=== PATIENT | male | born 1930 | race Caucasian/White ===

== ENCOUNTER 2016-10-25 13:22 | Inpatient (IN) | payer MEDICARE, BC ==
[~2016-10-25] VITALS: Ht 175.3 cm; Wt 85.2 kg
[2016-10-25] VITALS (9 sets, daily range): BP systolic 113–162; BP diastolic 58–81; PULSE 48–64; RESP 15–19; TEMP 97.3–98.2; O2SAT 96–99
[~2016-10-25 13:22] MED LIST: AGGR20025 PO; AMIO0.1T PO; ATOR10TA15 PO; COMMODE 3-IN-11 MIS; HYDR-3516 PO; METO25TA3 PO; THERTAB15 PO; UMEC1AER INH; VENTAER INH; VITA100021 SL; WHEEMIS3
--- NOTE | 2016-10-25 13:47 | PD ---
HPI Chief Complaint: Complaint Time Seen by Provider: 13:47 Travel History International Travel<30 days: No Contact w/Intl Traveler<30days: No Traveled to known affect area: No History of Present Illness HPI 86-year-old male presents to the emergency department for evaluation of bleeding from his penis after he pulled out his Saenz catheter this morning. He states that he had a procedure done in Dr. Jona Winchester's office 2 weeks ago, sounds like a TURP procedure. He states that he was instructed to pull out his Saenz catheter tomorrow morning, but pulled it out today thinking today was Wednesday. He states he did this at 4:30 AM. Patient states that he cut the second port and pulled it out without difficulty. He states that since then, he has been bleeding and having blood clots. He states he has been unable to urinate since he pulled out the Saenz. The patient also states that he is dizzy since he pulled out his Saenz.He can be. He does report a history of cardiac bypass, A. fib, COPD, hyperlipidemia, hypertension. He is currently on Bactrim. He states he tried to call his urologist, but was unable to reach them. Patient's montessori program director is Dr. Rivera. He states that he is going to get a defibrillator by Dr. Rivera. [facility] Past Medical History Hx Anticoagulant Therapy: Yes Arthritis: Yes Asthma: No Autoimmune Disease: No Anxiety: No Depression: No Heart Rhythm Problems: No Cancer: Yes (colon) Cardiac Catheterization: Yes Cardiovascular Problems: Yes High Cholesterol: Yes Chemotherapy: Yes Chest Pain: No Congestive Heart Failure: Yes COPD: Yes Cerebrovascular Accident: Yes Diabetes: No (pt states has never been diagnosed as DM) Diminished Hearing: No Endocrine: No Gastrointestinal Disorders: No GERD: No Genitourinary: Yes (pt has indwelling saenz cathetar) Headaches: Yes Hiatal Hernia: Yes Hypertension: Yes Immune Disorder: No Kidney Stones: No Musculoskeletal: Yes (OA) Neurologic: No Psychiatric: No Reproductive: No Respiratory: Yes Immunizations Current: Yes Migraines: No Renal Failure: No Seizures: No Sickle Cell Disease: No Sleep Apnea: No Thyroid Disease: No Ulcer: No Tetanus Vaccination: Unknown Influenza Vaccination: Yes Past Surgical History Abdominal Surgery: Yes (HERNIA REPAIR, 3 FT OF COLON REMOVED) AICD: No Arteriovenous Shunt: No Cardiac Surgery: Yes (cardiac cath and cabg) Coronary Artery Bypass Graft: Yes Ear Surgery: No Endocrine Surgery: No Eye Surgery: No Genitourinary Surgery: Yes (TURP) Gynecologic Surgery: Yes (COLON ca AND HERNIA 94') Insulin Pump: No Joint Replacement: No Oral Surgery: No Pacemaker: No Thoracic Surgery: Yes (CABGx3) Other Surgery: Yes (3 FT OF COLON REMOVED - COLON CA, TURP) Social History Alcohol Use: Yes (DAILY) Tobacco Use: No Substance Use: No Allergies-Medications (Allergen,Severity, Reaction): Coded Allergies: Morphine (Verified Allergy, Severe, HIVES, 10/25/16) Reported Meds & Prescriptions Reported Meds & Active Scripts Active Ventolin Hfa 18 GM Inh (Albuterol Sulfate) 90 Mcg/Act Aer 2 Puff INH Q4-6H PRN Amiodarone (Amiodarone HCl) 100 Mg Tab 100 Mg PO DAILY Hold for HR less than 60 Anoro Ellipta Inh (Umeclidinium/Vilanterol) 62.5-25 Mcg/Act Aero 1 Puff INH DAILY Atorvastatin (Atorvastatin Calcium) 10 Mg Tab 10 Mg PO HS Aggrenox (Dipyridamole/Aspirin) 200-25 Mg Cap 1 Cap PO BID Reported Lisinopril 2.5 Mg Tab 2.5 Mg PO DAILY Bactrim DS (Sulfamethoxazole-Trimethoprim) 800-160 Mg Tab 1 Tab PO Q12HR Coreg (Carvedilol) 3.125 Mg Tab 3.125 Mg PO BID Hold for Systolic B/P less than 110 Duoneb (Ipratropium-Albuterol Neb) 0.5-2.5 Mg/3 Ml Neb 3 Ml NEB TID Spironolactone 25 Mg Tab 25 Mg PO BID Review of Systems Except as stated in HPI: all other systems reviewed are Neg Physical Exam Narrative GENERAL: Well-nourished, well-developed elderly male patient, ambulatory. Afebrile. SKIN: Focused skin assessment warm/dry. HEAD: Normocephalic. Atraumatic. EYES: No scleral icterus. No injection or drainage. NECK: Supple, trachea midline. No JVD or lymphadenopathy. CARDIOVASCULAR: Regular rate and rhythm without murmurs, gallops, or rubs. RESPIRATORY: Breath sounds equal bilaterally. No accessory muscle use. Lungs sounds are clear to auscultation. GASTROINTESTINAL: Abdomen soft, non-tender, nondistended. MUSCULOSKELETAL: No cyanosis, or edema. BACK: Nontender without obvious deformity. No CVA tenderness. GENITOURINARY: Circumcised. Testes descended bilaterally without evidence of rotation. No lesions or erythema. Patient has blood noted at the tip of the penis with small blood clot noted. This exam was done with ROBINA Delgado, at bedside. Data Data Last Documented VS Vital Signs Date Time Temp Pulse Resp B/P Pulse Ox O2 Delivery O2 Flow Rate FiO2 10/25/16 15:00 54 17 137/60 98 Room Air 10/25/16 13:25 98.2 Orders Complete Blood Count With Diff (10/25/16 13:45) Basic Metabolic Panel (Bmp) (10/25/16 13:45) Urinalysis - C+S If Indicated (10/25/16 13:45) Iv Access Insert/Monitor (10/25/16 13:45) Urinary Catheter Insert/Apply (10/25/16 13:45) Urine Culture (10/25/16 14:15) Electrocardiogram (10/25/16 14:37) Potassium, Serum (K) (10/25/16 17:37) Calcium Gluconate Inj (Calcium Gluconate (10/25/16 14:45) Sodium Bicarbonate 8.4% Inj (Sodium Bica (10/25/16 14:45) Albuterol Concentrated Neb (Albuterol Co (10/25/16 14:45) Insulin Human Regular Inj (Novolin R Inj (10/25/16 14:45) Dextrose 50% In Cassandra (Vial) Inj (D50w (Vi (10/25/16 14:45) Sodium Bicarbonate 8.4% Inj (Sodium Bica (10/25/16 15:15) Sodium Chlorid 0.9% 500 Ml Inj (Ns 500 M (10/25/16 15:15) Sodium Polysty Sulfate Liq (Kayexalate L (10/25/16 15:15) Ceftriaxone Inj (Rocephin Inj) (10/25/16 15:30) Admit Order (Ed Use Only) (10/25/16 15:48) Labs Laboratory Tests Test 10/25/16 10/25/16 10/25/16 14:00 14:15 14:40 White Blood Count 7.0 TH/MM3 Red Blood Count 3.68 MIL/MM3 Hemoglobin 11.7 GM/DL Hematocrit 34.3 % Mean Corpuscular Volume 93.1 FL Mean Corpuscular Hemoglobin 31.8 PG Mean Corpuscular Hemoglobin 34.2 % Concent Red Cell Distribution Width 14.7 % Platelet Count 176 TH/MM3 Mean Platelet Volume 8.0 FL Neutrophils (%) (Auto) 84.9 % Lymphocytes (%) (Auto) 6.8 % Monocytes (%) (Auto) 7.3 % Eosinophils (%) (Auto) 0.5 % Basophils (%) (Auto) 0.5 % Neutrophils # (Auto) 6.0 TH/MM3 Lymphocytes # (Auto) 0.5 TH/MM3 Monocytes # (Auto) 0.5 TH/MM3 Eosinophils # (Auto) 0.0 TH/MM3 Basophils # (Auto) 0.0 TH/MM3 CBC Comment AUTO DIFF Differential Total Cells 100 Counted Neutrophils % (Manual) 79 % Band Neutrophils % 4 % Lymphocytes % 10 % Monocytes % 7 % Neutrophils # (Manual) 5.8 TH/MM3 Differential Comment FINAL DIFF MANUAL Platelet Estimate NORMAL Platelet Morphology Comment NORMAL Red Cell Morphology Comment NORMAL Sodium Level 127 MEQ/L Potassium Level 6.5 MEQ/L 6.6 MEQ/L Chloride Level 96 MEQ/L Carbon Dioxide Level 19.2 MEQ/L Anion Gap 12 MEQ/L Blood Urea Nitrogen 47 MG/DL Creatinine 2.72 MG/DL Estimat Glomerular Filtration 22 ML/MIN Rate Random Glucose 121 MG/DL Calcium Level 8.9 MG/DL Total Bilirubin 0.4 MG/DL Direct Bilirubin 0.1 MG/DL Indirect Bilirubin 0.3 MG/DL Aspartate Amino Transf 10 U/L (AST/SGOT) Alanine Aminotransferase 12 U/L (ALT/SGPT) Alkaline Phosphatase 60 U/L Total Creatine Kinase 58 U/L Total Protein 6.7 GM/DL Albumin 3.7 GM/DL Urine Color LIGHT-RED Urine Turbidity HAZY Urine pH 6.0 Urine Specific Staples 1.017 Urine Protein 300 mg/dL Urine Glucose (UA) NEG mg/dL Urine Ketones NEG mg/dL Urine Occult Blood LARGE Urine Nitrite NEG Urine Bilirubin NEG Urine Urobilinogen LESS THAN 2.0 MG/DL Urine Leukocyte Esterase SMALL Urine RBC /hpf Urine WBC 46 /hpf Microscopic Urinalysis Comment CATH-CULTURE IND MDM Medical Decision Making Medical Screen Exam Complete: Yes Emergency Medical Condition: Yes Medical Record Reviewed: Yes Differential Diagnosis Urinary retention versus urethral injury versus UTI Narrative Course 86-year-old elderly male presents to the emergency department for evaluation of bleeding from his penis since he pulled out his Saenz catheter this morning. He states he has been unable to urinate. CBC, BMP, UA are ordered and pending. Saenz catheter is ordered to be replaced due to urinary retention. CBC shows hemoglobin 11.7, hematocrit 34.3. BMP shows hyponatremia 127, potassium 6.5, CO2 19.2, BUN 47, creatinine 2.72. BUN and creatinine are elevated since previous lab draw on June 14, 2016 where BUN/creatinine was 35/1.49. UA shows large occult blood, 46 WBC. Patient is given Rocephin 1 gm IV. Repeat potassium is 6.6. Patient is given calcium gluconate 1 g slow IV push, 2 amps sodium bicarbonate, albuterol 10 mg inhaled, insulin 10 units IV push, dextrose 1 amp. EKG is ordered and shows sinus bradycardia, first-degree AV block, heart rate 39. 1450 - I spoke to BERNARDINO Hinton for Dr. Winchester and notified him that the patient was in the hospital. 1515 - I spoke to Dr. Christiansen, tinner helper, who would the patient to be given Kayexalate as well. He also like the patient to be hydrated as well. NS 500 ml bolus is ordered. 1620 - Dr. Christiansen notified me that patient is followed by Dr. Pena. Consult is changed and Dr. Pena is paged. 1647 - I spoke to Dr. Pena who would like US kidneys ordered and NS with 1 amp of bicarb at 75 mls/hr. Orders placed. [facility] is paged for admission. Dr. Casarez accepted admission. Diagnosis Primary Impression: Acute renal failure Qualified Code: N17.9 - Acute renal failure, unspecified acute renal failure type Additional Impressions: Hyperkalemia UTI (urinary tract infection) Qualified Code: T83.511A - Urinary tract infection associated with indwelling urethral catheter, initial encounter Admitting Information Admitting Physician Requests: Admit aYneth Trent Oct 25, 2016 13:47
[2016-10-25] MEDS ORDERED: CARV3.125 PO (14:00)
[2016-10-25] MEDS ORDERED: LISI2.5T3 PO (14:00)
[2016-10-25] MEDS ORDERED: IPRASOL NEB (14:00)
[2016-10-25] MEDS ORDERED: BACT800T5 PO (14:00)
[2016-10-25] MEDS ORDERED: SPIR25TA PO (14:00)
[2016-10-25 14:09] LABS: BASOPHIL % 0.5 % (0.0-2.0); EOSINOPHIL % 0.5 % (0.0-4.0); HEMATOCRIT 34.3 % (39.0-51.0); LYMPH % 6.8 % (9.0-44.0); LYMPHOCYTE # 0.5 TH/MM3 (1.0-4.8); MEAN CELL VOLUME 93.1 FL (80.0-100.0); MEAN CORPUSCULAR HEMOGLOBIN 31.8 PG (27.0-34.0); MEAN CORPUSCULAR HGB CONC 34.2 % (32.0-36.0); MONO % 7.3 % (0.0-8.0); NEUT % 84.9 % (16.0-70.0); PLATELET COUNT 176 TH/MM3 (150-450); RED BLOOD COUNT 3.68 MIL/MM3 (4.50-5.90); RED CELL DISTRIBUTION WIDTH 14.7 % (11.6-17.2)
[2016-10-25 14:10] LABS: HEMO FLAGS AUTO DIFF
[2016-10-25 14:22] LABS: BICARBONATE 19.2 MEQ/L (21.0-32.0); POTASSIUM 6.5 MEQ/L (3.5-5.1)
[2016-10-25 14:34] LABS: BLOOD, URINE LARGE (NEG); GLUCOSE,URINE NEG (NEG); KETONE, URINE NEG (NEG); NITRITE,URINE NEG (NEG); URINE COLOR LIGHT-RED (YELLW/STRAW)
[2016-10-25 14:35] LABS: COMMENT (UR) CATH-CULTURE IND; CULTURE IF INDICATED CATH CULTURE IND
[2016-10-25 14:37] LABS: BANDS 4 % (0-6); NEUTROPHIL # MANUAL DIFF 5.8 TH/MM3 (1.8-7.7); PLATELET ESTIMATE SMEAR NORMAL (NORMAL); PLATELET MORPHOLOGY NORMAL (NORMAL); POLYS (SEG NEUTROPHILS) 79 % (16-70); SCAN/DIFF FINAL DIFF MANUAL; WBC DIFF SAMPLE 100
[2016-10-25] MEDS ORDERED: DEXTROSE 50% IN WATER 50 ML VIAL(D50) IV PUSH ONE (14:45)
[2016-10-25] MEDS ORDERED: RESP: ALBUTEROL CONC 2.5 MG/0.5 ML NEB INH ONE (14:45)
[2016-10-25] MEDS ORDERED: CALCIUM GLUCONATE 10% 1 GM/10 ML VIAL SLOW IVP ONE (14:45)
[2016-10-25] MEDS ORDERED: SODIUM BICARBONATE 8.4% SOLN 50 MEQ/50 ML VIAL SLOW IVP ONE ×2 (14:45→15:15)
[2016-10-25] MEDS ORDERED: INSULIN HUMAN REGULAR 1,000 UNITS/10 ML VIAL IV PUSH ONE (14:45)
[2016-10-25] MEDS ORDERED: SODIUM POLYSTYRENE SULFONATE SUSP 15 GM/60 ML CUP PO ONE (15:15)
[2016-10-25] MEDS ORDERED: SODIUM CHLORID 0.9% 500 ML INJ 500 ML IV ONE (15:15)
[2016-10-25] MEDS ORDERED: cefTRIAXone INJ 1,000 MG in SODIUM CHLORIDE 0.9% INJ 100 ML IV ONE (15:30)
[2016-10-25] MEDS ORDERED: SODIUM BICARBONATE 8.4% INJ 50 MEQ in SODIUM CHLOR 0.9% 1000 ML INJ 1,000 ML IV SCH (16:45)
--- NOTE | 2016-10-25 16:58 | PD ---
Physical Exam Narrative GENERAL: Well-nourished, well-developed patient. SKIN: Warm and dry. HEAD: Normocephalic and atraumatic. EYES: No injection or drainage. ENT: No nasal drainage noted. NECK: Supple, trachea midline. CARDIOVASCULAR: Bradycardic rate and regular rhythm RESPIRATORY: Breath sounds equal bilaterally at apices. No accessory muscle use. GASTROINTESTINAL: Abdomen soft, non-tender, nondistended. NEUROLOGICAL: Awake. Moves all extremities. Normal speech. Data Data Last Documented VS Vital Signs Date Time Temp Pulse Resp B/P Pulse Ox O2 Delivery O2 Flow Rate FiO2 10/25/16 15:00 54 17 137/60 98 Room Air 10/25/16 13:25 98.2 Orders Complete Blood Count With Diff (10/25/16 13:45) Basic Metabolic Panel (Bmp) (10/25/16 13:45) Urinalysis - C+S If Indicated (10/25/16 13:45) Iv Access Insert/Monitor (10/25/16 13:45) Urinary Catheter Insert/Apply (10/25/16 13:45) Urine Culture (10/25/16 14:15) Electrocardiogram (10/25/16 14:37) Potassium, Serum (K) (10/25/16 17:37) Calcium Gluconate Inj (Calcium Gluconate (10/25/16 14:45) Sodium Bicarbonate 8.4% Inj (Sodium Bica (10/25/16 14:45) Albuterol Concentrated Neb (Albuterol Co (10/25/16 14:45) Insulin Human Regular Inj (Novolin R Inj (10/25/16 14:45) Dextrose 50% In Cassandra (Vial) Inj (D50w (Vi (10/25/16 14:45) Sodium Bicarbonate 8.4% Inj (Sodium Bica (10/25/16 15:15) Sodium Chlorid 0.9% 500 Ml Inj (Ns 500 M (10/25/16 15:15) Sodium Polysty Sulfate Liq (Kayexalate L (10/25/16 15:15) Ceftriaxone Inj (Rocephin Inj) (10/25/16 15:30) Admit Order (Ed Use Only) (10/25/16 15:48) Labs Laboratory Tests Test 10/25/16 10/25/16 10/25/16 14:00 14:15 14:40 White Blood Count 7.0 TH/MM3 Red Blood Count 3.68 MIL/MM3 Hemoglobin 11.7 GM/DL Hematocrit 34.3 % Mean Corpuscular Volume 93.1 FL Mean Corpuscular Hemoglobin 31.8 PG Mean Corpuscular Hemoglobin 34.2 % Concent Red Cell Distribution Width 14.7 % Platelet Count 176 TH/MM3 Mean Platelet Volume 8.0 FL Neutrophils (%) (Auto) 84.9 % Lymphocytes (%) (Auto) 6.8 % Monocytes (%) (Auto) 7.3 % Eosinophils (%) (Auto) 0.5 % Basophils (%) (Auto) 0.5 % Neutrophils # (Auto) 6.0 TH/MM3 Lymphocytes # (Auto) 0.5 TH/MM3 Monocytes # (Auto) 0.5 TH/MM3 Eosinophils # (Auto) 0.0 TH/MM3 Basophils # (Auto) 0.0 TH/MM3 CBC Comment AUTO DIFF Differential Total Cells 100 Counted Neutrophils % (Manual) 79 % Band Neutrophils % 4 % Lymphocytes % 10 % Monocytes % 7 % Neutrophils # (Manual) 5.8 TH/MM3 Differential Comment FINAL DIFF MANUAL Platelet Estimate NORMAL Platelet Morphology Comment NORMAL Red Cell Morphology Comment NORMAL Sodium Level 127 MEQ/L Potassium Level 6.5 MEQ/L 6.6 MEQ/L Chloride Level 96 MEQ/L Carbon Dioxide Level 19.2 MEQ/L Anion Gap 12 MEQ/L Blood Urea Nitrogen 47 MG/DL Creatinine 2.72 MG/DL Estimat Glomerular Filtration 22 ML/MIN Rate Random Glucose 121 MG/DL Calcium Level 8.9 MG/DL Urine Color LIGHT-RED Urine Turbidity HAZY Urine pH 6.0 Urine Specific Broadus 1.017 Urine Protein 300 mg/dL Urine Glucose (UA) NEG mg/dL Urine Ketones NEG mg/dL Urine Occult Blood LARGE Urine Nitrite NEG Urine Bilirubin NEG Urine Urobilinogen LESS THAN 2.0 MG/DL Urine Leukocyte Esterase SMALL Urine RBC /hpf Urine WBC 46 /hpf Microscopic Urinalysis Comment CATH-CULTURE IND MDM Supervised Visit with SYDNEY: Yes Interpretation(s) CBC & BMP Diagram 10/25/16 14:00 10/25/16 14:40 EKG is sinus bradycardia no peaked T's noted Narrative Course I, Dr. tolentino, have reviewed the advance practice practitioner's documentation and am in agreement, met with the patient face to face, made the diagnosis, and the medical decision making was done by me. *My assessment and Findings: 86 y/o male presents with taking his Stinson catheter out one day early and starting to have difficulty urinating. Stinson catheter replaced with gross blood. Labs show acute renal failure with hyperkalemia. Patient is bradycardic and given calcium and bicarbonate with improvement in his heart rate. Nephrology and urology consulted and patient will be admitted for further care On recheck patient's urine is starting to clear after IV fluid hydration, heart rate is improving after bicarbonate and calcium, patient will be monitored in [facility] Critical Care Narrative Aggregate critical care time was 31 minutes. Time to perform other separately billable procedures was not included in the critical care time. My time did not include minutes spent treating any other patients simultaneously or on activities that did not directly contribute to the patient's treatment. The services I provided to this patient were to treat and/or prevent clinically significant deterioration that could result in: Cardiac dysrhythmia I provided critical care services requiring my management, as noted below: Chart data review, documentation time, medication orders and management, vital sign assessments/reviewing monitor data, ordering and reviewing lab tests, ordering and interpreting/reviewing x-rays and diagnostic studies, care of the patient and discussion of the patient with the admitting physicians. Physician Communication Physician Communication dr robert agrees to admit Diagnosis Primary Impression: Acute renal failure Qualified Code: N17.9 - Acute renal failure, unspecified acute renal failure type Additional Impressions: UTI (urinary tract infection) Qualified Code: T83.511A - Urinary tract infection associated with indwelling urethral catheter, initial encounter Hyperkalemia Hematuria Bradycardia Admitting Information Admitting Physician Requests: Admit Lizzie Tolentino MD Oct 25, 2016 16:58
[2016-10-25 18:21] LABS: INDIRECT BILIRUBIN 0.3 MG/DL (0.0-0.8); TOTAL BILIRUBIN ADULT 0.4 MG/DL (0.2-1.0)
--- NOTE | 2016-10-25 18:32 | HHI.HP ---
[facility] Physician Mary Kay London MD Admission Diagnosis hyperkalemia, renal failure, bradycardia Diagnoses: Chief Complaint: Hematuria Travel History International Travel<30 Days: No Contact w/Intl Traveler <30 Da: No Traveled to Known Affected Are: No History of Present Illness Patient is an 86-year-old male with history of benign prostatic hypertrophy had cold thermal therapy done 2 weeks ago at urology office Dr. Dominguez. He was discharged with a Stinson catheter and this was supposed to be removed tomorrow October 26- but patient removed it today instead at around 4:30 and had not voided since then. Patient felt full and came to the ER where a Stinson catheter was placed and drained initially gross hematuria. obtained around 500 cc of urine. Patient denies any fever or chills. Also at the emergency room initially heart rate was noted to be in the 30s. When discussed about this there was a plan to put him to place a pacemaker/AICD on him by Dr. Rivera Review of medications shows that he is on amiodarone and Coreg. Review of Systems Constitutional: DENIES: Diaphoretic episodes, Fatigue, Fever, Weight gain, Weight loss, Chills, Dizziness, Change in appetite, Night Sweats Endocrine: DENIES: Heat/cold intolerance, Polydipsia, Polyuria, Polyphagia Eyes: DENIES: Blurred vision, Diplopia, Eye inflammation, Eye pain, Vision loss , Photosensitivity, Double Vision Ears, nose, mouth, throat: DENIES: Tinnitus, Hearing loss, Vertigo, Nasal discharge, Oral lesions, Throat pain, Hoarseness, Ear Pain, Running Nose, Epistaxis, Sinus Pain, Toothache, Odynophagia Respiratory: DENIES: Apneas, Cough, Snoring, Wheezing, Hemoptysis, Sputum production, Shortness of breath Cardiovascular: DENIES: Chest pain, Palpitations, Syncope, Dyspnea on Exertion , PND, Lower Extremity Edema, Orthopnea, Claudication Gastrointestinal: DENIES: Abdominal pain, Black stools, Bloody stools, Constipation, Diarrhea, Nausea, Vomiting, Difficulty Swallowing, Anorexia Genitourinary: COMPLAINS OF: Urgency, DENIES: Sexual dysfunction, Urinary frequency, Urinary incontinence, Hematuria, Dysuria, Nocturia, Penile Discharge , Testicular Pain, Testicular Swelling Musculoskeletal: DENIES: Joint pain, Muscle aches, Stiffness, Joint Swelling, Back pain, Neck pain Integumentary: DENIES: Abnormal pigmentation, Nail changes, Pruritus, Rash Hematologic/lymphatic: DENIES: Bruising, Lymphadenopathy Immunologic/allergic: DENIES: Eczema, Urticaria Neurologic: DENIES: Abnormal gait, Headache, Localized weakness, Paresthesias, Seizures, Speech Problems, Tremor, Poor Balance Psychiatric: DENIES: Anxiety, Confusion, Mood changes, Depression, Hallucinations, Agitation, Suicidal Ideation, Homicidal Ideation, Delusions Past Family Social History Past Medical History Cardiac arrhythmia/questionable cardiomyopathy Hyperlipidemia History of CAD status post 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 Past Surgical History CABG 2015 history of colon cancer status post resection in 1993 Reported Medications Spiral in May 19 milligrams twice a Aggrenox 1 tab twice a Atorvastatin 10 mg at bedtime Amiodarone 100 mg daily DuoNeb 3 times a day Milligrams metered-dose inhaler Coreg 3.125 mg twice a day Lisinopril 2.5 mg daily Patient states that he has 1 more dose of Bactrim DS for 1 day Allergies: Coded Allergies: Morphine (Verified Allergy, Severe, HIVES, 10/25/16) Family History Noncontributory Social History Smoker quit in 1993 History of alcohol use quit in March 2016 Denies any substance abuse Physical Exam Vital Signs Vital Signs Date Time Temp Pulse Resp B/P Pulse Ox O2 Delivery O2 Flow Rate FiO2 10/25/16 16:57 61 19 116/58 98 Room Air 10/25/16 15:00 54 17 137/60 98 Room Air 10/25/16 13:33 51 17 162/71 99 Room Air 10/25/16 13:25 98.2 48 15 133/59 99 Physical Exam GENERAL: in no apparent distress. SKIN: No rashes, ecchymoses or lesions. Cool and dry. HEAD: Atraumatic. Normocephalic. No temporal or scalp tenderness. EYES: Pupils equal round and reactive. Extraocular motions intact. No scleral icterus. No injection or drainage. ENT: Nose without bleeding, purulent drainage or septal hematoma. Throat without erythema, tonsillar hypertrophy or exudate. Uvula midline. Airway patent. NECK: Trachea midline. No JVD or lymphadenopathy. Supple, nontender, no meningeal signs. CARDIOVASCULAR: Regular rate and rhythm without murmurs, gallops, or rubs. RESPIRATORY: Clear to auscultation. Breath sounds equal bilaterally. No wheezes , rales, or rhonchi. GASTROINTESTINAL: Abdomen soft, non-tender, nondistended. No hepato-splenomegaly , or palpable masses. No guarding. Stinson catheter in place draining dark yellow urine MUSCULOSKELETAL: Extremities without clubbing, cyanosis, or edema. No joint tenderness, effusion, or edema noted. No calf tenderness. Negative Homans sign bilaterally. NEUROLOGICAL: Awake and alert. Cranial nerves II through XII intact. Motor and sensory grossly within normal limits. Five out of 5 muscle strength in all muscle groups. Normal speech. Laboratory Laboratory Tests Test 10/25/16 10/25/16 10/25/16 14:00 14:15 14:40 White Blood Count 7.0 Red Blood Count 3.68 Hemoglobin 11.7 Hematocrit 34.3 Mean Corpuscular Volume 93.1 Mean Corpuscular Hemoglobin 31.8 Mean Corpuscular Hemoglobin 34.2 Concent Red Cell Distribution Width 14.7 Platelet Count 176 Mean Platelet Volume 8.0 Neutrophils (%) (Auto) 84.9 Lymphocytes (%) (Auto) 6.8 Monocytes (%) (Auto) 7.3 Eosinophils (%) (Auto) 0.5 Basophils (%) (Auto) 0.5 Neutrophils # (Auto) 6.0 Lymphocytes # (Auto) 0.5 Monocytes # (Auto) 0.5 Eosinophils # (Auto) 0.0 Basophils # (Auto) 0.0 CBC Comment AUTO DIFF Differential Total Cells 100 Counted Neutrophils % (Manual) 79 Band Neutrophils % 4 Lymphocytes % 10 Monocytes % 7 Neutrophils # (Manual) 5.8 Differential Comment FINAL DIFF MANUAL Platelet Estimate NORMAL Platelet Morphology Comment NORMAL Red Cell Morphology Comment NORMAL Sodium Level 127 Potassium Level 6.5 6.6 Chloride Level 96 Carbon Dioxide Level 19.2 Anion Gap 12 Blood Urea Nitrogen 47 Creatinine 2.72 Estimat Glomerular Filtration 22 Rate Random Glucose 121 Calcium Level 8.9 Urine Color LIGHT-RED Urine Turbidity HAZY Urine pH 6.0 Urine Specific Lizella 1.017 Urine Protein 300 Urine Glucose (UA) NEG Urine Ketones NEG Urine Occult Blood LARGE Urine Nitrite NEG Urine Bilirubin NEG Urine Urobilinogen LESS THAN 2.0 Urine Leukocyte Esterase SMALL Urine RBC Urine WBC 46 Microscopic Urinalysis Comment CATH-CULTURE IND Date/Time Procedure Status Source Growth 10/25/16 14:15 Urine Culture Received Urine Catheterized Urine Pending Result Diagram: 10/25/16 1400 10/25/16 1440 Assessment and Plan Assessment and Plan 86-year-old male presenting with Gross hematuria status post likely traumatic removal of Stinson catheter ( probably not defated completely) now clearing up with History of obstructive uropathy - BPH - Stinson reinserted will monitor. Keep Stinson and if stable will call his urologist in the morning for outpatient follow-up Hyperkalemia. Patient is on RACHELLE inhibitor and Aldactone for I'm assuming cardiomyopathy will discontinue this for now Acute on top of chronic kidney insufficiency with underlying obstructive uropathy component Hyponatremia- mild- - Status post bolus bicarbonate and Kayexalate - creatinine Should improve with replacement of Stinson. - continue on HC03 drip- -We'll recheck electrolytes now. EKG revealed no signs of hyperkalemia - known to Dr. Pena- consulted History of CAD status post CABG Cardiomyopathy. Sinus bradycardia and now rate improved- bradycardia from- some vasovagal component Will hold off on Coreg/Aldactone/Lisinopril and amiodarone for now monitor in telemetry -Hold Aggrenox with acute hematuria -Cardiology consult with Dr. Rivera regarding eventual AICD placement plan -Continue on statins Discussed with patient and family at bedside Ask to bring in the number of his urologist from home and I will call and discuss with urologist Discussed Condition With Patient and Physician Certification 2 Midnight Certification Type: Admission for Inpatient Services Order for Inpatient Services The services are ordered in accordance with Medicare regulations or non- Medicare payer requirements, as applicable. In the case of services not specified as inpatient-only, they are appropriately provided as inpatient services in accordance with the 2-midnight benchmark. Estimated LOS (days): 3 days is the estimated time the patient will need to remain in the hospital, assuming treatment plan goals are met and no additional complications. Post-Hospital Plan: Not yet determined Moo Casarez MD Oct 25, 2016 18:32
[2016-10-25 22:14] LABS: POTASSIUM 4.9 MEQ/L (3.5-5.1)
--- NOTE | 2016-10-25 23:39 | RADRPT ---
EXAM DATE/TIME: 10/25/2016 22:46 [place] COMPARISON: US KIDNEY/RENAL/BLADDER, April 18, 2016, 15:30. INDICATIONS : Increased BUN and Creatintine. MEDICAL HISTORY : Hypercholesterolemia. Congestive heart failure. Chronic obstructive pulmonary disease. Cerebrovascula r accident. Headaches. Coronary artery disease. Anticoagulant therapy. Hyperlipidemia. Afib. Hyperten angelo. Hiatal hernia. Chronic renal disease. Benign prostatic hypertrophy. Arthritis. Colon cancer. Me asles. Blood transfusion. SURGICAL HISTORY : CABG. Transurethral resection of the prostate. Hiatal hernia repair. Colon resection. ENCOUNTER: Subsequent ACUITY: 1 day PAIN SCORE: 0/10 LOCATION: Bilateral flank MEASUREMENTS: RIGHT KIDNEY: 10.9 x 5.7 x 5.6 cm LEFT KIDNEY: 11.3 x 5.7 x 5.7 cm FINDINGS: RIGHT KIDNEY: Renal cortex is normal in thickness and echotexture. No hydronephrosis, stone, or mass. LEFT KIDNEY: Renal cortex is normal in thickness and echotexture. No hydronephrosis, stone, or mass. BLADDER: Within normal limits given the degree of distension. A Stinson balloon is observed. The prostate gland is enlarged. CONCLUSION: 1. Enlarged prostate. 2. Otherwise, unremarkable exam. Mickey Hightower Jr., MD on October 25, 2016 at 23:36 Board Certified Radiologist. This report was verified electronically.
[2016-10-26] VITALS (22 sets, daily range): BP systolic 91–119; BP diastolic 46–58; PULSE 57–87; RESP 14–18; TEMP 97.6–98.1; O2SAT 96–98
[2016-10-26] MEDS ORDERED: LEVOFLOXACIN 250 MG TAB PO SCH (09:00)
--- NOTE | 2016-10-26 09:05 | HHI.PR ---
Subjective Remarks no complains saenz- clear urine Objective Vitals Vital Signs Date Time Temp Pulse Resp B/P Pulse Ox O2 Delivery O2 Flow Rate FiO2 10/26/16 06:00 66 10/26/16 05:00 62 10/26/16 04:37 97.6 66 14 102/52 96 10/26/16 04:00 58 10/26/16 03:59 61 10/26/16 03:00 62 10/26/16 02:00 62 10/26/16 01:00 60 10/26/16 00:52 58 14 91/46 97 10/26/16 00:00 57 10/25/16 23:00 64 10/25/16 22:00 56 10/25/16 21:00 56 10/25/16 20:10 97.3 64 18 124/77 98 10/25/16 20:10 56 10/25/16 19:27 62 18 113/81 96 Room Air 10/25/16 16:57 61 19 116/58 98 Room Air 10/25/16 15:00 54 17 137/60 98 Room Air 10/25/16 13:33 51 17 162/71 99 Room Air 10/25/16 13:25 98.2 48 15 133/59 99 I/O 10/25/16 10/25/16 10/25/16 10/26/16 10/26/16 10/26/16 07:00 15:00 23:00 07:00 15:00 23:00 Intake Total 826 ml Output Total 2800 ml Balance -1974 ml Intake Oral 120 ml IV Total 706 ml Output Urine Total 2800 ml # Bowel Movements 0 Result Diagram: 10/25/16 1400 10/25/16 2150 Imaging Last Impressions Renal Ultrasound 10/25/16 0000 Signed Impressions: Service Date/Time: Tuesday, October 25, 2016 22:46 - CONCLUSION: 1. Enlarged prostate. 2. Otherwise, unremarkable exam. Mickey Hightower Jr., MD Objective Remarks awake and alert anicteric lungs clear regular rhythm- telemetry- sinus- rate 70s abdomen soft, nontender extremities no edema neuro exam- unremarkable Urinary Catheter: Yes Assessment to: Continue Saenz insert reason: Obstruction/Retention Date of Insertion: Oct 25, 2016 A/P Assessment and Plan 86-year-old male presenting with Gross hematuria - resolved status post likely traumatic removal of Saenz catheter ( probably not deflated completely) now clearing up with History of obstructive uropathy - BPH - spoke with Dr. Dominguez- Urologist- keep saenz for another week and ff up office in 1 week Hyperkalemia. Acute on top of chronic kidney insufficiency with underlying obstructive uropathy component Hyponatremia- improved Patient is on RACHELLE inhibitor and Aldactone for I'm assuming cardiomyopathy- discontinued on admission resolved. DC HC03 drip - Status post bicarbonate bous/ and Kayexalate - creatinine Should improve with replacement of Saenz. -We'll recheck electrolytes now. EKG revealed no signs of hyperkalemia - known to Dr. Pena- consulted History of CAD status post CABG Cardiomyopathy. Sinus bradycardia and now rate improved- bradycardia from- some vasovagal component Will hold off on Coreg/Aldactone/Lisinopril and amiodarone for now monitor in telemetry -Hold Aggrenox with acute hematuria -Cardiology consult with Dr. Rivera regarding eventual AICD placement plan -Continue on statins Pyuria- ff final C and S levaquin 250 mg po daily Discussed with patient and family at bedside PT consult- up and ambulate with leg bag Moo Casarez MD Oct 26, 2016 09:05 Moo Casarez MD Oct 26, 2016 09:05
[2016-10-26] MEDS ORDERED: PNEUMOCOCCAL POLYVALENT INJ 25 MCG/0.5 ML SYR IM ONE (10:00)
[2016-10-26 10:02] LABS: HEMATOCRIT 31.5 % (39.0-51.0); MEAN CELL VOLUME 93.4 FL (80.0-100.0); MEAN CORPUSCULAR HEMOGLOBIN 32.3 PG (27.0-34.0); MEAN CORPUSCULAR HGB CONC 34.6 % (32.0-36.0); PLATELET COUNT 118 TH/MM3 (150-450); RED BLOOD COUNT 3.38 MIL/MM3 (4.50-5.90); RED CELL DISTRIBUTION WIDTH 14.9 % (11.6-17.2); REVIEW FLAG FINAL; WHITE BLOOD COUNT 3.5 TH/MM3 (4.0-11.0)
--- NOTE | 2016-10-26 10:42 | EKG ---
Date Performed: 10/25/2016 Time Performed: 14:49:46 PTAGE: 86 years EKG: atrial fibrillation with slow ventricular response OCCASIONAL PVC MARKED LEFT AXIS DEVIATIO N LEFT BUNDLE BRANCH BLOCK ABNORMAL ECG PREVIOUS TRACING : 06/05/2016 03.49 DOCTOR: Jose Ceja Interpretating Date/Time 10/26/2016 10:39:40
[2016-10-26 10:50] LABS: BICARBONATE 26.1 MEQ/L (21.0-32.0); POTASSIUM 4.5 MEQ/L (3.5-5.1)
--- NOTE | 2016-10-26 11:14 | MB ---
cc: SHANEKA MACK MD DATE OF CONSULTATION: 10/25/2016 REASON FOR CONSULTATION: Chronic kidney disease with acute kidney injury and hyperkalemia. HISTORY OF PRESENT ILLNESS This is a 86-year-old male known to me from before with past medical history of benign prostatic hypertrophy, history of obstructive uropathy and had indwelling catheter, history of colon cancer, cerebrovascular accident in 2008, benign prostatic hypertrophy and hypertension, came to the hospital because of inability to void. I was called to see the patient because of elevated BUN and creatinine. The patient has been following with me in the office and the last time he was seen by me was on May 04 and then he was supposed to come in June but he missed the appointment. The patient has been following with urology Dr. Dominguez and he has indwelling Stinson catheter and he was told by Dr. Dominguez to remove the Stinson catheter possibly tomorrow but he attempted and tried to remove it by himself earlier this morning and he was able to get the catheter out but he got some blood coming out from his urethra after the catheter was removed and then he was unable to pass any urine. The patient came to the ER and it was found that his creatinine was elevated and his potassium was high. The Stinson catheter was inserted and he immediately got 500 ccs of urine out. The patient denies any nausea or vomiting. There is no history of diarrhea. He denies any shortness of breath. No chest pain. No palpitation. When he came to the emergency department he was also found to be bradycardic and his heart rate is better now and his blood pressure has been stable. The patient denies any headache or dizziness. There is no history of fever. PAST MEDICAL HISTORY 1. Hypertension. 2. Hyperlipidemia. 3. History of colon cancer. 4. Obstructive uropathy. 5. Benign prostatic hypertrophy. 6. Cerebrovascular accident. 7. Ischemic heart disease post coronary artery bypass grafting. PAST SURGICAL HISTORY 1. History of coronary artery bypass grafting in 1993. 2. History of coronary artery bypass grafting 2015. 3. History of colonic resection in 1993. 4. TURP in 2004. 5. Hernia repair. REVIEW OF SYSTEMS There is no history of fever. No sore throat, no headache, dizziness or blurring of vision. The patient has generalized weakness, feeling tired. There is no shortness of breath or chest pain. No nausea, vomiting or palpitation. No abdominal pain. He has difficulty in passing urine since the catheter was removed by him at home and has some bloody discharge from the urethra. The patient had been diagnosed with urinary tract infection and was started on Bactrim 10 days ago and he has been also taking spironolactone at home. SOCIAL HISTORY He stopped smoking in 1993, history of alcoholism and stopped in March of 2006. FAMILY HISTORY Noncontributory. ALLERGIES MORPHINE. MEDICATIONS Currently he is on the following medications: 1. IV fluid, half-normal saline sodium bicarb __ hour. 2. Ceftriaxone one dose. 3. Sodium bicarbonate one dose. 4. Calcium gluconate. 5. Kayexalate. PHYSICAL EXAMINATION GENERAL: On examination the patient is awake, alert. He is not in acute distress. VITAL SIGNS: His last blood pressure is 124/77, temperature 97.3, oxygen saturation 96-98%. HEENT: Pupils equally reacting to light. Nonicteric sclerae. Conjunctivae pale. NECK: Supple. JVD is not elevated. LUNGS: The patient has bilateral decreased air entry with occasional wheezing. HEART: S1, S2 regular rhythm. ABDOMEN: Soft, lax. There is no tenderness. Bowel sounds positive. EXTREMITIES: There is no pedal edema. INVESTIGATION WBC count 7.0, hemoglobin 11.7, platelet count of 176, neutrophils 84.9%. Sodium 127, potassium 6.5, repeat 6.6, chloride 96, bicarb 19.2, BUN 47, creatinine 2.7, glucose 121, AST is 10, ALT is 12, creatinine kinase 58, total protein 6.7, albumin 3.7. INR is not done. Urinalysis showing that he has protein of 300 with large blood, WBC 46. IMAGING STUDIES The patient has chest x-ray done in May so there is no recent imaging study. Ultrasound of the kidney was done in March of last year and at that time he has moderate bilateral hydronephrosis with distended bladder and large prostate. The left kidney measured 10 cm and the right kidney measured 11.3 cm. ASSESSMENT AND PLAN 1. Chronic kidney disease with acute kidney injury. 2. Hyperkalemia and metabolic acidosis. 3. Hyponatremia. 4. Urinary tract infection. 5. History of benign prostatic hypertrophy. 6. Bradycardia. The patient has improvement in the heart rate and it has now gone up to in the 60s. His blood pressure has been stable. He has chronic kidney disease, possibly related to chronic obstruction and now developed acute kidney injury with hyperkalemia which is multifactorial including urinary tract infection, obstructive uropathy and possibility of Bactrim induced hyperkalemia and increased creatinine. His potassium is also elevated because he has been on spironolactone, lisinopril. His antihypertensive medications and diuretic has been on hold right now. He received one dose of ceftriaxone. Urine culture is pending. Continue the IV fluid with sodium bicarbonate and follow the urine output and the BUN and creatinine. Avoid any nephrotoxins. His baseline creatinine is close to 1.4-1.5. Thank you for the consultation. I will follow the patient while he is in the hospital. Shaneka Mack MD AQJ/TLL /8:43 PM /10:38 AM
--- NOTE | 2016-10-26 14:39 | PD.CONS ---
HPI Service Cardiology Physicians Consult Requested By Dr Casarez Reason for Consult Bradycardia Primary Care Physician Mary Kay London MD History of Present Illness The patient is an 86 year old male known to our practice with a cardiac history CMP EF 30% pending consideration for AICD, ASHD s/p CABG 05/2016, chronic systolic CHF, HLD and CVA. Other notable history is CKD. The patient presented to the hospital after accidently pulling out his urinary catheter and noted he was not able to urinate and had blood with blood clots coming out of his penis. He was noted to have bradycardia associated with profound electrolyte abnormalities and acute on chronic renal failure. The patient denied lightheadedness or dizziness at time of bradycardia. He was recently started on lisinopril 2.5 mg and was on spironolactone 25 mg BID for cardiomyopathy. Today , on evaluation, he feels good and is anxious to be discharged. Review of Systems Consitutional: DENIES: Fatigue, Fever, Chills, Weight gain, Weight loss Eyes: DENIES: Amaurosis [place], Change in vision HEENT: DENIES: Lightheadedness, Change in hearing Respiratory: DENIES: See HPI, Cough, Snoring, Shortness of breath, Wheezing, Sputum production Cardiovascular: DENIES: See HPI, Chest pain, Palpitations, Syncope, Tachycardia Gastrointestinal: DENIES: Nausea, Vomiting, Change in bowel habits, Reflux, Bloody stools, Melena Genitourinary: COMPLAINS OF: Difficulty voiding Integumentary: DENIES: Rash Neurologic: DENIES: Tingling or numbness, Memory problems, Poor Balance, Stroke symptoms Musculoskeletal: DENIES: Joint pain, Muscle pain, Limited range of motion, Back pain Psychiatric: DENIES: Anxiety, Depression, Sleep disturbances Hematologic: DENIES: Bruising tendencies, Bleeding tendencies Endocrine: DENIES: Weight gain, Weight loss, Thyroid disease Past Family Social History Allergies: Coded Allergies: Morphine (Verified Allergy, Severe, HIVES, 10/25/16) Past Medical History See HPI Past Surgical History CABG 05/2016 Reported Medications Reported Meds & Active Scripts Active Ventolin Hfa 18 GM Inh (Albuterol Sulfate) 90 Mcg/Act Aer 2 Puff INH Q4-6H PRN Amiodarone (Amiodarone HCl) 100 Mg Tab 100 Mg PO DAILY Hold for HR less than 60 Anoro Ellipta Inh (Umeclidinium/Vilanterol) 62.5-25 Mcg/Act Aero 1 Puff INH DAILY Atorvastatin (Atorvastatin Calcium) 10 Mg Tab 10 Mg PO HS Aggrenox (Dipyridamole/Aspirin) 200-25 Mg Cap 1 Cap PO BID Reported Lisinopril 2.5 Mg Tab 2.5 Mg PO DAILY Bactrim DS (Sulfamethoxazole-Trimethoprim) 800-160 Mg Tab 1 Tab PO Q12HR Coreg (Carvedilol) 3.125 Mg Tab 3.125 Mg PO BID Hold for Systolic B/P less than 110 Duoneb (Ipratropium-Albuterol Neb) 0.5-2.5 Mg/3 Ml Neb 3 Ml NEB TID Spironolactone 25 Mg Tab 25 Mg PO BID Active Ordered Medications Current Medications Medications (Trade) Dose Ordered Sig/Nagi Route Start Time Stop Time Status Last Admin (Levaquin) 250 mg DAILY PO 10/26/16 09:00 10/26/16 09:31 Family History non contributory Social History Nonsmoker, no etoh Physical Exam Vital Signs Vital Signs Date Time Temp Pulse Resp B/P Pulse Ox O2 Delivery O2 Flow Rate FiO2 10/26/16 11:00 97.8 87 18 115/58 96 10/26/16 10:00 70 10/26/16 07:45 98.0 69 16 119/56 98 10/26/16 07:00 65 10/26/16 06:00 66 10/26/16 05:00 62 10/26/16 04:37 97.6 66 14 102/52 96 10/26/16 04:00 58 10/26/16 03:59 61 10/26/16 03:00 62 10/26/16 02:00 62 10/26/16 01:00 60 10/26/16 00:52 58 14 91/46 97 10/26/16 00:00 57 10/25/16 23:00 64 10/25/16 22:00 56 10/25/16 21:00 56 10/25/16 20:10 97.3 64 18 124/77 98 10/25/16 20:10 56 10/25/16 19:27 62 18 113/81 96 Room Air 10/25/16 16:57 61 19 116/58 98 Room Air 10/25/16 15:00 54 17 137/60 98 Room Air Physical Exam GENERAL: Lederly male, no distress SKIN: Warm and dry. HEAD: Atraumatic. Normocephalic. EYES: Pupils equal and round. No scleral icterus. No injection or drainage. ENT: No nasal bleeding or discharge. Mucous membranes pink and moist. NECK: Trachea midline. CARDIOVASCULAR: Regular rate and rhythm. RESPIRATORY: No accessory muscle use. Clear to auscultation. Breath sounds equal bilaterally. GASTROINTESTINAL: Abdomen soft, non-tender, nondistended. : urinary catheter MUSCULOSKELETAL: Extremities without clubbing, cyanosis, or edema. No obvious deformities. NEUROLOGICAL: Awake and alert. No obvious cranial nerve deficits. Motor grossly within normal limits. Five out of 5 muscle strength in the arms and legs. Normal speech. PSYCHIATRIC: Appropriate mood and affect; insight and judgment normal. Laboratory Laboratory Tests Test 10/25/16 10/25/16 10/25/16 10/25/16 14:00 14:15 14:40 21:50 White Blood Count 7.0 Red Blood Count 3.68 Hemoglobin 11.7 Hematocrit 34.3 Mean Corpuscular Volume 93.1 Mean Corpuscular Hemoglobin 31.8 Mean Corpuscular Hemoglobin 34.2 Concent Red Cell Distribution Width 14.7 Platelet Count 176 Mean Platelet Volume 8.0 Neutrophils (%) (Auto) 84.9 Lymphocytes (%) (Auto) 6.8 Monocytes (%) (Auto) 7.3 Eosinophils (%) (Auto) 0.5 Basophils (%) (Auto) 0.5 Neutrophils # (Auto) 6.0 Lymphocytes # (Auto) 0.5 Monocytes # (Auto) 0.5 Eosinophils # (Auto) 0.0 Basophils # (Auto) 0.0 CBC Comment AUTO DIFF Differential Total Cells 100 Counted Neutrophils % (Manual) 79 Band Neutrophils % 4 Lymphocytes % 10 Monocytes % 7 Neutrophils # (Manual) 5.8 Differential Comment FINAL DIFF MANUAL Platelet Estimate NORMAL Platelet Morphology Comment NORMAL Red Cell Morphology Comment NORMAL Sodium Level 127 134 Potassium Level 6.5 6.6 4.9 Chloride Level 96 101 Carbon Dioxide Level 19.2 27.0 Anion Gap 12 6 Blood Urea Nitrogen 47 43 Creatinine 2.72 2.22 Estimat Glomerular Filtration 22 28 Rate Random Glucose 121 105 Calcium Level 8.9 8.6 Total Bilirubin 0.4 Direct Bilirubin 0.1 Indirect Bilirubin 0.3 Aspartate Amino Transf 10 (AST/SGOT) Alanine Aminotransferase 12 (ALT/SGPT) Alkaline Phosphatase 60 Total Creatine Kinase 58 Total Protein 6.7 Albumin 3.7 Urine Color LIGHT-RED Urine Turbidity HAZY Urine pH 6.0 Urine Specific [place] 1.017 Urine Protein 300 Urine Glucose (UA) NEG Urine Ketones NEG Urine Occult Blood LARGE Urine Nitrite NEG Urine Bilirubin NEG Urine Urobilinogen LESS THAN 2.0 Urine Leukocyte Esterase SMALL Urine RBC Urine WBC 46 Microscopic Urinalysis Comment CATH-CULTURE IND Test 10/26/16 09:56 White Blood Count 3.5 Red Blood Count 3.38 Hemoglobin 10.9 Hematocrit 31.5 Mean Corpuscular Volume 93.4 Mean Corpuscular Hemoglobin 32.3 Mean Corpuscular Hemoglobin 34.6 Concent Red Cell Distribution Width 14.9 Platelet Count 118 Mean Platelet Volume 7.5 Sodium Level 136 Potassium Level 4.5 Chloride Level 102 Carbon Dioxide Level 26.1 Anion Gap 8 Blood Urea Nitrogen 32 Creatinine 1.92 Estimat Glomerular Filtration 34 Rate Random Glucose 191 Calcium Level 8.4 Date/Time Procedure Status Source Growth 10/25/16 14:15 Urine Culture Received Urine Catheterized Urine Pending Result Diagram: 10/26/16 0956 10/26/16 0956 Imaging Last 72 hours Impressions Renal Ultrasound 10/25/16 0000 Signed Impressions: Service Date/Time: Tuesday, October 25, 2016 22:46 - CONCLUSION: 1. Enlarged prostate. 2. Otherwise, unremarkable exam. Mickey Hightower Jr., MD Assessment and Plan Assessment and Plan ASSESSMENT Asymptomatic bradycardia due to electrolyte abnormalities. HR improved with normalization of electrolytes Acute renal failure due to obstructive uropathy, possible medication causes. From cardiac standpoint, patient on Aldactone and lisinopril. Also bactrim Ischemic cardiomyopathy, pending AICD once UTI antibiotic course completed. The patient recently elected to discontinue LifeVEST with accepted risks ASHD s/p CABG 05/2016 CVA on Aggrenox PLAN: Will stop lisinopril and Aldactone due to recent profound electrolyte abnormality Continue telemetry monitoring HR improved with electrolyte normalization. No emergent need for AICD at this time. Will continue with previous plan to complete AICD after the patient 's infection is treated. The patient is stable from cardiac standpoint for discharge. Patient seen and evaluated by Dr. Rivera. Alka Patterson Oct 26, 2016 14:38
--- NOTE | 2016-10-26 16:44 | HHI.PR ---
Subjective Remarks feeling better, saenz bag- clear urine Objective Vitals Vital Signs Date Time Temp Pulse Resp B/P Pulse Ox O2 Delivery O2 Flow Rate FiO2 10/26/16 16:00 70 10/26/16 15:00 75 10/26/16 15:00 98.1 76 18 115/58 97 10/26/16 14:00 60 10/26/16 13:00 58 10/26/16 12:00 68 10/26/16 11:00 97.8 87 18 115/58 96 10/26/16 11:00 71 10/26/16 10:00 70 10/26/16 09:00 78 10/26/16 08:00 66 10/26/16 07:45 98.0 69 16 119/56 98 10/26/16 07:00 65 10/26/16 06:00 66 10/26/16 05:00 62 10/26/16 04:37 97.6 66 14 102/52 96 10/26/16 04:00 58 10/26/16 03:59 61 10/26/16 03:00 62 10/26/16 02:00 62 10/26/16 01:00 60 10/26/16 00:52 58 14 91/46 97 10/26/16 00:00 57 10/25/16 23:00 64 10/25/16 22:00 56 10/25/16 21:00 56 10/25/16 20:10 97.3 64 18 124/77 98 10/25/16 20:10 56 10/25/16 19:27 62 18 113/81 96 Room Air 10/25/16 16:57 61 19 116/58 98 Room Air I/O 10/25/16 10/25/16 10/25/16 10/26/16 10/26/16 10/26/16 07:00 15:00 23:00 07:00 15:00 23:00 Intake Total 826 ml Output Total 2800 ml Balance -1974 ml Intake Oral 120 ml IV Total 706 ml Output Urine Total 2800 ml # Bowel Movements 0 Result Diagram: 10/26/16 0956 10/26/16 0956 Imaging Last Impressions Renal Ultrasound 10/25/16 0000 Signed Impressions: Service Date/Time: Tuesday, October 25, 2016 22:46 - CONCLUSION: 1. Enlarged prostate. 2. Otherwise, unremarkable exam. Mickey Hightower Jr., MD Objective Remarks awake and alert anicteric lungs clear regular rhythm- telemetry- sinus- rate 70s abdomen soft, nontender extremities no edema neuro exam- unremarkable Urinary Catheter: Yes Saenz insert reason: Obstruction/Retention Date of Insertion: Oct 25, 2016 A/P Assessment and Plan 86-year-old male presenting with Gross hematuria - resolved status post likely traumatic removal of Saenz catheter ( probably not deflated completely) now clearing up with History of obstructive uropathy - BPH - spoke with Dr. Dominguez- Urologist- keep saenz for another week and ff up office in 1 week Hyperkalemia. Acute on top of chronic kidney insufficiency with underlying obstructive uropathy component Hyponatremia- improved Patient is on RACHELLE inhibitor and Aldactone for I'm assuming cardiomyopathy- discontinued on admission resolved. DC HC03 drip - Status post bicarbonate bous/ and Kayexalate - creatinine Should improve with replacement of Saenz. History of CAD status post CABG Cardiomyopathy. Sinus bradycardia and now rate improved- bradycardia from- some vasovagal component Will hold off on Coreg/Aldactone/Lisinopril and amiodarone for now monitor in telemetry restarrt Aggrenox as OP restart Coreg and amiodarone as OP -Continue on statins Pyuria- ff final C and s still pending levaquin 250 mg po daily Discussed with patient and family at bedside PT consult- up and ambulate with leg Moo Salazar MD Oct 26, 2016 16:44
[2016-10-26] MEDS ORDERED: LEVA250T PO (16:46)
--- NOTE | 2016-10-26 17:12 | HHI.NPPN ---
Subjective General Problems: Edema, Hypertension Renal Failure: Chronic, Acute, Stage IV History of Present Illness 6-year-old male known to me from before with past medical history of benign prostatic hypertrophy, history of obstructive uropathy and had indwelling catheter, history of colon cancer, cerebrovascular accident in 2008, benign prostatic hypertrophy and hypertension, came to the hospital because of inability to void. I was called to see the patient because of elevated BUN and creatinine and high K level. Additional Remarks Patient is alert, now feeling better, no SOB. Review of Systems General Constitutional: Fatigue Cardiovascular Cardiac: CRISTINA Objective Data Data 10/25/16 10/26/16 19:00 07:00 Intake Total 826 ml Output Total 2800 ml Balance -1974 ml Intake Oral 120 ml IV Total 706 ml Output Urine Total 2800 ml # Bowel Movements 0 Vital Signs Date Time Temp Pulse Resp B/P Pulse Ox O2 Delivery O2 Flow Rate FiO2 10/26/16 16:00 70 10/26/16 15:00 75 10/26/16 15:00 98.1 76 18 115/58 97 10/26/16 14:00 60 10/26/16 13:00 58 10/26/16 12:00 68 10/26/16 11:00 97.8 87 18 115/58 96 10/26/16 11:00 71 10/26/16 10:00 70 10/26/16 09:00 78 10/26/16 08:00 66 10/26/16 07:45 98.0 69 16 119/56 98 10/26/16 07:00 65 10/26/16 06:00 66 10/26/16 05:00 62 10/26/16 04:37 97.6 66 14 102/52 96 10/26/16 04:00 58 10/26/16 03:59 61 10/26/16 03:00 62 10/26/16 02:00 62 10/26/16 01:00 60 10/26/16 00:52 58 14 91/46 97 10/26/16 00:00 57 10/25/16 23:00 64 10/25/16 22:00 56 10/25/16 21:00 56 10/25/16 20:10 97.3 64 18 124/77 98 10/25/16 20:10 56 10/25/16 19:27 62 18 113/81 96 Room Air -: 10/26/16 0956 10/26/16 0956 Physical Exam General Appearance: No Acute Distress, Comfortable Eyes Eye Exam: Pupils Equal Throat Throat Exam: Oral Mucosa [place] & Moist Pulmonary Resp Exam: Breath Sounds Equal, No Distress, Rhonchi, Decreased Bases Cardiology CV Exam: Regular, Normal Sinus Rhythm Gastrointestinal/Abdomen GI Exam: Soft, Non-Tender, Bowel Sounds Present Extremeties Extremities Exam: Trace Edema Neurologic Neuro Exam: Alert, Awake, Oriented Psychiatric Psych Exam: Appropriate Responses Assessment/Plan Assessment Summary: GLENDA/Acute Renal Failure, CKD Stage IV Electrolyte Assessment: Hyperkalemia Problem List: (1) Anemia (2) CAD (coronary artery disease) (3) DM (diabetes mellitus) (4) Hypertension (5) Bladder outlet obstruction (6) Urinary tract infection (7) GLENDA (acute kidney injury) (8) Hyperkalemia (9) CKD (chronic kidney disease), stage III Plan Patient has improvement in the Creatinine. K is now normal. GLENDA was combination of obs. pre renal, and medication. Has Gram neg. UTI on Levaquin. Now for discharge. To hold spironolactone and Lisinopril. I will follow in 2-3 weeks. Problem Qualifiers (1) Hypertension: Qualified Code: I10 - Essential hypertension Karen Pena MD Oct 26, 2016 17:12
--- NOTE | 2016-10-27 11:13 | HHI.FF ---
Face to Face Verification Diagnosis: (1) Renal insufficiency (2) Stinson catheter problem (3) Urinary retention (4) Hyperkalemia Physical Therapy Order: Evaluate and Treat, Improve ambulation Occupational Therapy Order: Gross motor coordination Home Health Nursing Order: Medical education Signs/symptoms of disease process Stinson catheter maintenance I have seen patient Ruperto Prieto on 10/27/16. My clinical findings support the need for the requested home health care services because: Ltd mobility - disease progression I certify that my clinical findings support that this patient is homebound because: Need for psychosocial assistance Moo Casarez MD Oct 27, 2016 11:13
== END 2016-10-26 17:38 | disposition home or self-care (01) | DRG 699 ==
LOC: NEPE 13:22 → NEDA 15:50 → HCIN 20:00
PROVIDERS: ADMIT Internal Medicine; ATTEND Internal Medicine
PROC: 0T9B70Z Drainage of Bladder with Drainage Device, Via Natural or Artificial Opening (ICD-10-PCS; principal; 2016-10-25)
DX: T83.098A Other mechanical complication of other urinary catheter, initial encounter (principal); N17.9 Acute kidney failure, unspecified; N18.4 Chronic kidney disease, stage 4 (severe); I42.9 Cardiomyopathy, unspecified; E87.1 Hypo-osmolality and hyponatremia; I50.22 Chronic systolic (congestive) heart failure; I13.10 Hypertensive heart and chronic kidney disease without heart failure, with stage 1 through stage 4 chronic kidney disease, or unspecified chronic kidney disease; N39.0 Urinary tract infection, site not specified; N13.8 Other obstructive and reflux uropathy; N13.9 Obstructive and reflux uropathy, unspecified; R31.0 Gross hematuria; E87.5 Hyperkalemia; J44.9 Chronic obstructive pulmonary disease, unspecified; I48.91 Unspecified atrial fibrillation; R00.1 Bradycardia, unspecified; N40.1 Benign prostatic hyperplasia with lower urinary tract symptoms; I25.10 Atherosclerotic heart disease of native coronary artery without angina pectoris; E78.5 Hyperlipidemia, unspecified; M19.90 Unspecified osteoarthritis, unspecified site; Z95.1 Presence of aortocoronary bypass graft; K44.9 Diaphragmatic hernia without obstruction or gangrene; Z86.73 Personal history of transient ischemic attack (TIA), and cerebral infarction without residual deficits
CPT/HCPCS: 51703; 76775; 80048; 80076; 81001; 82550; 84132; 85007; 85027; 87077; 87086; 87186; 93005; 94664; 96374; 96375; J0610; J0696; J1815; J7030; J7040; J7611